=== PATIENT | female | born 1980 | race Caucasian/White ===

== ENCOUNTER → 2021-05-25 04:10 | Outpatient (CLI) | payer OTHER, SELFPAY ==
[2021-05-25 18:23] LABS: SARS-CoV-2 RNA PCR Negative
== END ==
PROVIDERS: Visit Provider Surgery
DX: Z01.812 Encounter for preprocedural laboratory examination (principal); Z20.822 Contact with and (suspected) exposure to COVID-19
CPT/HCPCS: 93005; C9803; U0003; U0005

== ENCOUNTER 2021-05-25 08:53 | Outpatient (CLI) | payer OTHER, SELFPAY ==
--- NOTE | 2021-05-25 08:30 | ECG_ITS ---
Measurements Intervals Almo Rate: 82 P: 40 ME: 150 QRS: 60 QRSD: 73 T: 40 QT: 347 QTc: 408 Interpretive Statements SINUS RHYTHM INCOMPLETE RIGHT BUNDLE BRANCH BLOCK BASELINE ARTIFACT- I, II, III, AVR, AVL, AVF BORDERLINE ECG Electronically Signed On 05-25-2021 9:06:57 CDT by Chapincito Clement D.O.
== END 2021-05-25 08:54 | disposition home or self-care (01) ==
LOC: ANHSURGERY 08:57
PROVIDERS: PCP Internal Medicine; Visit Provider Surgery
DX: Z01.818 Encounter for other preprocedural examination (principal); F17.200 Nicotine dependence, unspecified, uncomplicated
CPT/HCPCS: 93005

== ENCOUNTER 2021-05-28 02:03 | Day surgery (SDC) | payer OTHER, SELFPAY ==
[2021-05-24 18:05] VITALS: BMI 23.6
[2021-05-28] VITALS (8 sets, daily range): BP systolic 89–119; BP diastolic 61–80; PULSE 74–90; RESP 12–16; TEMP 36.2–36.5; O2SAT 98–100; BMI 23.2
--- NOTE | 2021-05-28 07:04 | WPDANESEPPF ---
Anes - Initial Pre Proc Eval Procedure: Operation Date: 05/28/21 07:30 Proposed Procedures p Umbilical Hernia Repair with Possible Mesh - Román Moreno DO Date/Time: 05/28/21 07:04 Surgeon: Román Moreno DO Pre Op Diagnosis: Umbilical Hernia Repair Patient Data Age: 40 Gender: F Height: 1.55 m Weight: 55.8 kg Last Vital Signs Temp 36.5 C 05/28/21 07:02 Pulse 90 05/28/21 07:02 Resp 16 05/28/21 07:02 BP 113/62 05/28/21 07:02 Pulse Ox 100 05/28/21 07:02 Allergies Allergy/AdvReac Type Severity Reaction Status Date / Time No Known Allergies Allergy Verified 05/24/21 17:55 Home Medications Medication Instructions Recorded Confirmed Type quetiapine [Seroquel] 100 mg PO BID 10/24/19 05/28/21 History [id number] fum-folic [id number] 1 pkg PO DAILY 05/24/21 05/28/21 History [Daily ] Patient hx anesthesia problems: other (increased BP) Family hx anesthesia problems: none PMFSH Past Medical History Medical History Anxiety Chronic pain syndrome Surgical History Surgical History H/O tubal ligation Social History Social History Smoking packs per day: 1 Smoking cigarettes per day: 20.0 Years smoked: 20 Smoking pack-years: 20.00 Smoking status: Current every day smoker Tobacco type: cigarettes Second hand tobacco smoke exposure: No Alcohol intake: former 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 rehab 5 months ago Substance use: former Substance use type: former substance user, heroin, methamphetamine and prescription drug Other substance usage details: drugs were last used in November 2016 Living arrangements: with roommate(s) Spiritual care concerns: No Anes - Eval Final PreProcedure Day of Procedure 05/28/21 07:04 Patient weight: normal Heart: regular rate and rhythm Lungs: decreased breath sounds Airway: Mallampati scale class III Neurological: alert and oriented Last oral intake: >/= 8 hours ASA classification: III Emergent: no Anesthetic plan: proceed Anesthesia type and monitoring: general LMA and standard monitoring Informed Consent: The patient's anesthetic plan and its attendant risks and benefits were discussed with the patient/family/POA. Questions were solicited and answers provided to the satisfaction of the patient/family/POA.
[2021-05-28] MEDS: ACETAMINOPHEN 500 MG TABLET 1000 MG PO (07:13)
[2021-05-28] MEDS: LACTATED RINGERS 1,000 ML 30 ML IV CONT (07:13)
[2021-05-28] MEDS: KETOROLAC 15 MG/ML VIAL (*BKC) IV PUSH (07:13)
--- NOTE | 2021-05-28 07:21 | PM.IMHP ---
H&P: HPI History of Present Illness Date/Time: 05/28/21 07:21 Chief Complaint: umbilical hernia Narrative: 40 yo woman presents for umbilical hernia repair. She denies any changes since last seen in office. Review of Systems Review of Systems: All systems reviewed & are unremarkable except as noted in HPI and below Constitutional: Constitutional: Denies chills, Denies fever(s), Denies headache(s) and Denies weight loss Eyes: Eyes: Denies change in vision ENT: Denies dizziness, Denies headache(s), Denies neck mass and Denies throat swelling Cardiovascular: Cardiovascular: Denies chest pain, Denies lightheadedness and Denies dyspnea Respiratory: Respiratory: Denies cough, Denies dyspnea and Denies wheezing Gastrointestinal: Gastrointestinal: Denies abdominal pain, Denies change in bowel habits, Denies nausea and Denies vomiting Genitourinary: Genitourinary: Denies hematuria and Denies dysuria Musculoskeletal: Musculoskeletal: Reports as per HPI Integumentary/Breasts: Skin/Breast: Reports as per HPI Neurologic: Denies dizziness and Denies headache(s) Allergic/Immunologic: Allergic/Immunologic: Denies throat swelling and Denies wheezing PMFSH Past Medical History Medical History Anxiety Chronic pain syndrome Surgical History Surgical History H/O tubal ligation Social History Social History Smoking packs per day: 1 Smoking cigarettes per day: 20.0 Years smoked: 20 Smoking pack-years: 20.00 Smoking status: Current every day smoker Tobacco type: cigarettes Second hand tobacco smoke exposure: No Alcohol intake: former 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 rehab 5 months ago Substance use: former Substance use type: former substance user, heroin, methamphetamine and prescription drug Other substance usage details: drugs were last used in November 2016 Living arrangements: with roommate(s) Spiritual care concerns: No Meds Home Medications and Allergies Home Medications Medication Instructions Recorded Confirmed Type quetiapine [Seroquel] 100 mg PO BID 10/24/19 05/28/21 History [id number] fum-folic ac-om3 1 pkg PO DAILY 05/24/21 05/28/21 History [Daily ] Allergies Allergy/AdvReac Type Severity Reaction Status Date / Time No Known Allergies Allergy Verified 05/24/21 17:55 Vital Signs Vital Signs - 24 hr 05/28/21 07:02 Temperature 36.5 C Pulse Rate 90 Respiratory Rate 16 Blood Pressure 113/62 Pulse Oximetry 100 Exam Const: General: no acute distress and alert Orientation/consciousness: patient oriented x3 HENMT: Head: normocephalic and atraumatic Ears: hearing grossly normal bilaterally General nose exam: Normal nares present Mouth: Yes Normal oral and palatal mucosa present Eyes: Periorbital: periorbital findings normal Sclera: sclerae normal EOM: EOMs intact bilaterally Neck: Neck: normal visual inspection, no lymphadenopathy and trachea midline Chest: Chest palpation & inspection: normal inspection of the chest Resp: Effort & Inspection: normal respiratory effort Auscultation: clear to auscultation bilaterally Cardio: Jugular venous distension: no JVD Rate: regular rate Rhythm: regular rhythm Heart sounds: S1 normal heart sound present and S2 normal heart sound present Peripheral pulses: Peripheral pulses 2+ throughout GI: Inspection: normal to inspection GI Palp: Yes Soft to palpation, No Tenderness to palpation present (GI), No Guarding due to palpation present (GI), Yes Hernia present (1cm umbilical hernia) and No Rebound tenderness present Percussion: Yes normal to percussion Auscultation: normal bowel sounds : General: Yes no CVA tenderness Back/Spine/Pelvis: Back: no CVA tenderness Neuro: General: patient oriented x3, no
--- NOTE | 2021-05-28 07:23 | WPDHPUPDATE1 ---
History and Physical Update Update Date/Time: 05/28/21 07:23 History and Physical has been reviewed, including an updated exam of the patient. There are NO changes in the patient's condition. Risks, benefits, and alternatives have been discussed and questions answered. Patient agrees to proceed with procedure.
[2021-05-28] MEDS: ceFAZolin 2 GM/D5W 50 ML 2 GM/50 ML BAG IVPB (07:26)
[2021-05-28] MEDS: BUPIVACAINE/EPINEPHRINE 0.25% 10 ML VIAL 30 ML INFILTRATE (07:59)
--- NOTE | 2021-05-28 08:59 | W.PM.PROC2 ---
Procedure Note - Detailed Date of Procedure 05/28/21 Pre-op Diagnosis Umbilical Hernia Post-op Diagnosis same Procedure Performed Umbilical hernia repair Surgeon Román Moreno DO Anesthesia general and local (0.5% bupivacaine with epinephrine local.) Indications This is a 40-year-old woman who presented with a painful bulge at her umbilicus. She was found to have an umbilical hernia on physical exam. Discussions were made with the patient about her treatment options and decision was made to proceed with umbilical hernia repair with possible mesh. Findings Umbilical hernia repair was performed. The patient was found to have a 1 cm umbilical hernia. The hernia sac was excised and sent to the lab for pathology. The hernia was then closed primarily using 0 Ethibond [id number] sutures. A total of 3 sutures were placed transversely to approximate the fascia. Description of Procedure Procedure as well as risks, benefits, and alternatives were discussed with the patient. Written consent was obtained and placed in chart prior to procedure. Patient was brought back to surgical suite. She was placed supine on operating table. Time-out was done to confirm patient and procedure. She was intubated by the anesthesia department. Her abdomen was prepped and draped in sterile fashion using chlorhexidine prep. A 3 cm curvilinear incision was made just inferior to the umbilicus using a 15 blade scalpel. Electrocautery was used for hemostasis and for dissection down through Don's fascia. The hernia defect was identified and the hernia sac was carefully freed up from the umbilical skin using electrocautery. The hernia sac was then transected at the level of the fascia using electrocautery. The umbilical stalk was lifted off the fascia with electrocautery. The hernia defect was inspected and this only measured approximately 1 cm. The hernia defect was then closed using 0 Ethibond [id number] sutures. A total of 3 sutures were placed transversely to approximate the fascia. The sutures were tied down in place and then the repair was inspected. No other abnormalities were noted and hemostasis appeared adequate. 0.5% bupivacaine with epinephrine was infiltrated locally around the fascia and subcutaneous space. The umbilical stalk was then reapproximated to the fascia using 3-0 Vicryl simple interrupted suture. The deep dermis was reapproximated using 3-0 Vicryl simple interrupted sutures. The skin was approximated using 4 Monocryl running subcuticular suture. Exofin glue was then applied on top. The patient was then awakened from anesthesia, extubated, and transferred to recovery. Estimated Blood Loss 5 Complications No immediate complications Condition stable Disposition same day
[2021-05-28] MEDS: oxyCODONE HCL (*CRX) 5 MG TAB IR PO (09:31)
== END 2021-05-28 09:52 | disposition home or self-care (01) ==
PROVIDERS: PCP Internal Medicine; Visit Provider Surgery
PROC: (CPT 49585; principal; 2021-05-28 07:30)
DX: K42.9 Umbilical hernia without obstruction or gangrene (principal); F41.9 Anxiety disorder, unspecified; G89.4 Chronic pain syndrome; F17.210 Nicotine dependence, cigarettes, uncomplicated
CPT/HCPCS: 49585; 88302; A9270; J0690; J1100; J1885; J2250; J2405; J2704; J3010; J7120